=== PATIENT | male | born 1995 | race Two or more races ===

== ENCOUNTER 2019-07-04 08:06 | Emergency (ER) | payer MEDICAID ==
[~2019-07-04] VITALS: Ht 180.3 cm; Wt 75.3 kg
[2019-07-04 08:09] VITALS: BP 126/69
--- NOTE | 2019-07-04 08:29 | NUR ---
FIRST CONTACT WITH PT. PT C/O: PAIN IN LOWER BACK WITHOUT TRAUMA STARTING YESTERDAY AFTERNOON. PT DENIES LOSS OF BOWEL OR BLADDER CONTROL, NUMBNESS OR WEAKNESS OR LOWER EXTREMITIES. PT ADITI PMH OF BACK INJURY. PT'S AOX4. RESPS EVEN AND UNLABORED. PA AT BEDSIDE TO EVALUATE AT THIS TIME.
[2019-07-04] MEDS ORDERED: KETOROLAC 30 MG/1 ML ONE (08:32)
--- NOTE | 2019-07-04 08:38 | NUR ---
PT MEDICATED PER EMAR. PT TOLERATED WELL.
--- NOTE | 2019-07-04 08:52 | NUR ---
Patient given discharge instructions and they have confirmed that they understand the instructions. Patient ambulatory with steady gait.
[2019-07-04] MEDS ORDERED: KETOROLAC 30 MG/1 ML IM ONE (09:00)
== END 2019-07-04 08:53 | disposition home or self-care (01) ==
LOC: ED 08:37
DX: S39.012A Strain of muscle, fascia and tendon of lower back, initial encounter (principal); X58.XXXA Exposure to other specified factors, initial encounter; Y93.89 Activity, other specified; Y92.89 Other specified places as the place of occurrence of the external cause; Y99.8 Other external cause status
CPT/HCPCS: 96372; 99283; J1885